=== PATIENT | male | born 1980 | race American Indian/Alaskan Native ===

== ENCOUNTER 2018-02-17 21:51 | Emergency (ER) | payer OTHER ==
[2018-02-17 23:05] VITALS: BP 125/92
[2018-02-17] MEDS ORDERED: TYLENOL PO ONE (23:41)
[2018-02-17] MEDS ORDERED: BOOSTRIX IM ONE (23:41)
[2018-02-17] MEDS ORDERED: TRIPLE ANTIBIOTIC TP ONE (23:41)
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
--- NOTE | 2018-02-18 00:42 | Cat Scan Report ---
FINAL REPORT PROCEDURE: CT HEAD/BRAIN WO CON TECHNIQUE: Computerized tomography of the head was performed without contrast material. HISTORY: headache COMPARISON: No prior studies are available for comparison. FINDINGS: Skull and scalp: Normal. Paranasal sinuses: Normal. Ventricles and subarachnoid spaces: Normal. Cerebrum: No evidence of hemorrhage, acute infarction or mass . Cerebellum and brainstem: No evidence of hemorrhage, acute infarction or mass. Vasculature: Normal. Comments: None. IMPRESSION: Normal Examination
--- NOTE | 2018-02-18 00:44 | Cat Scan Report ---
FINAL REPORT PROCEDURE: CT CERVICAL SPINE WO CON TECHNIQUE: Computerized tomography of the cervical spine was performed from the skull base to T1 without contrast material. HISTORY: neck pain COMPARISON: No prior studies are available for comparison. FINDINGS: C1-2: No significant abnormality. C2-3: No significant abnormality. C3-4: No significant abnormality. C4-5: No significant abnormality. C5-6: No significant abnormality. C6-7: No significant abnormality. C7-T1: No significant abnormality. Other: There are no fractures or malalignments. Disc spaces are normal. Facet joints are intact. Prevertebral soft tissues are normal in thickness.. IMPRESSION: No significant abnormality.
== END 2018-02-18 01:19 | disposition home or self-care (01) ==
LOC: ED 21:51
DX: S01.01XA Laceration without foreign body of scalp, initial encounter (principal); V49.40XA Driver injured in collision with unspecified motor vehicles in traffic accident, initial encounter; Y93.89 Activity, other specified; Y92.89 Other specified places as the place of occurrence of the external cause; Y99.8 Other external cause status
CPT/HCPCS: 70450; 72125; 90471; 90715; 99284; A6250